=== PATIENT | female | born 1970 | race Caucasian/White ===

== ENCOUNTER 2017-03-16 17:20 | Emergency (ER) | payer MEDICAID ==
[~2017-03-16] VITALS: Wt 63.5 kg
--- NOTE | 2017-03-16 20:03 | ERD ---
ER Documentation Chief Complaint Date/Time DATE: 03/16/17 TIME: 20:02 Chief Complaint PAIN WITH URINATION X3 DAYS HPI This a 46-year-old female who presents the emergency department today complaining of pain with urination for the past day. Patient states after she goes she feels like she has to continue going. States also has some vaginal itching. Denies any nausea vomiting, back pain, fevers or chills. ROS All systems reviewed and are negative except as per history of present illness. Medications Home Meds Active Scripts Acetaminophen* (Tylophen*) 500 Mg Capsule, 1 CAP PO Q6H Y for PAIN AND OR ELEVATED TEMP, #30 CAP Prov:SANTOSH MANN PA-C 03/16/17 Clotrimazole* (Clotrimazole* AF) 1% - 30 Gm Cream.gm., 1 APPLIC TOP BID for 7 Days, #1 TUB Prov:SANTOSH MANN PA-C 03/16/17 Cephalexin* (Keflex*) 500 Mg Capsule, 500 MG PO QID for 7 Days, CAP Prov:SANTOSH MANN PA-C 03/16/17 Allergies Allergies: Coded Allergies: No Known Allergy (Unverified , 03/16/17) PMhx/Soc Medical and Surgical Hx: pt denies Surgical Hx History of Surgery: No Anesthesia Reaction: No Hx Neurological Disorder: No Hx Respiratory Disorders: No Hx Cardiac Disorders: No Hx Psychiatric Problems: No Hx Miscellaneous Medical Probl: Yes (Kidney stones) Hx Alcohol Use: No Hx Substance Use: No Hx Tobacco Use: No Smoking Status: Never smoker Physical Exam Vitals Vital Signs Date Time Temp Pulse Resp B/P Pulse Ox O2 Delivery O2 Flow Rate FiO2 03/16/17 17:23 99.0 87 19 134/88 99 Physical Exam Const: NAD Head: Atraumatic Eyes: Normal Conjunctiva ENT: Normal External Ears, Nose and Mouth. Neck: Full range of motion..~ No meningismus. Resp: Clear to auscultation bilaterally Cardio: Regular rate and rhythm, no murmurs Abd: Soft, suprapubic tenderness non distended. Normal bowel sounds. No tenderness at McBurney's. Skin: No petechiae or rashes Back: No midline or flank tenderness Ext: No cyanosis, or edema Neur: Awake and alert Psych: Normal Mood and Affect Results 24 hrs Laboratory Tests Test 03/16/17 20:05 Urine Color YELLOW Urine Clarity SLIGHTLY CLOUDY Urine pH 7.0 Urine Specific [place] 1.008 Urine Ketones NEGATIVEmg/dL Urine Nitrite NEGATIVEmg/dL Urine Bilirubin NEGATIVEmg/dL Urine Urobilinogen NEGATIVEmg/dL Urine Leukocyte Esterase 2+Jt/ul Urine Microscopic RBC 5/HPF Urine Microscopic WBC 8/HPF Urine Bacteria FEW/HPF Urine Hemoglobin 2+mg/dL Urine Glucose NEGATIVEmg/dL Urine Total Protein NEGATIVEmg/dl Procedures/MDM This is a 46-year-old female who presents the emergency department today complaining of pain with urination for the past 3 days and vaginal itching. Given patient's complaints I did obtain a UA UA shows 2+ leukocyte esterase negative nitrites and 8 microscopic white blood cells. Symptoms at this time is consistent with urinary tract infection and vaginal itching . Given a prescription for Keflex as well as a prescription for clotrimazole cream for vaginal itching. She was also given a prescription for Tylenol. At this time the patient is stable for discharge and outpatient management. Patient should follow up with their PCP in the next 1-2 days. They may return to the emergency department sooner for any persistent or worsening of symptoms. Patient understood and agreed with the plan. Departure Diagnosis: Primary Impression: UTI (urinary tract infection) Urinary tract infection type: site unspecified Hematuria presence: without hematuria Qualified Code: N39.0 - Urinary tract infection without hematuria, site unspecified Additional Impression: Vaginal itching Condition: SANTOSH Lin PA-C Mar 16, 2017 20:03
[2017-03-16 20:37] LABS: ADD UMIC YES; UR ASCORBIC ACID NEGATIVE (NEGATIVE); UR BACTERIA FEW /HPF (NONE SEEN); UR BILIRUBIN (Dip) NEGATIVE (NEGATIVE); UR BLOOD (Dip) 2+ mg/dL (NEGATIVE); UR CLARITY SLIGHTLY CLOUDY (CLEAR); UR COLOR YELLOW (YELLOW); UR GLUCOSE (Dip) NEGATIVE (NEGATIVE); UR KETONES (Dip) NEGATIVE (NEGATIVE); UR LEUKOCYTE ESTERASE (Dip) 2+ Leu/ul (NEGATIVE); UR NITRITE (Dip) NEGATIVE (NEGATIVE); UR RBC 5 /HPF (0-5); UR SPECIFIC GRAVITY (Dip) 1.008 (1.003-1.030); UR TOTAL PROTEIN (Dip) NEGATIVE (NEGATIVE); UR UROBILINOGEN (Dip) NEGATIVE (NEGATIVE)
[2017-03-16] MEDS ORDERED: CEPH-443 PO (20:44)
[2017-03-16] MEDS ORDERED: CLOT30CR24 TOP (20:44)
[2017-03-16] MEDS ORDERED: ACET500C5 PO (20:45)
== END 2017-03-16 21:01 | disposition home or self-care (01) ==
LOC: FTE 17:20
DX: N39.0 Urinary tract infection, site not specified (principal); N89.8 Other specified noninflammatory disorders of vagina
CPT/HCPCS: 81001; 99283